=== PATIENT | female | born 1945 | race African-American/Black ===

== ENCOUNTER 2016-12-29 17:17 | Emergency (ER) | payer MEDICARE, OTHER ==
[~2016-12-29 17:17] MED LIST: ADVAIR INH; ALEVE220 MG PO; ALLERGY SHOTS; AMITIZA8 MCG PO; ASAB PO; BIST PO; COUMADIN4 MG PO; CYMBALTA60 PO; DEXILANT PO; DIL2TAB PO; DIOVAN HCT PO; DITROXL5 PO; ELESTAT0.05 % OPH; KAPIDEX60 MG PO; LORT7 PO; LYRICA50 PO; MAG OXIDE250 MG PO; MAGOX4 PO; MSCONTIN PO; NEUR300 PO; NEUR400 PO; NORCO1 TA2 PO; PERCOCET1 TA2 PO; PRINZIDE1 TAB PO; PROAIR HFA INH; RESTASIS OPH; SINGULAIR1 PO; SLOW FE; SLOW FE160 MG PO; TESSALON200 MG PO; TRAVATAN OPH; TRAZODONE150 MG PO; V5 PO; VENTOLIN HFA INH; VESICARE5 PO; VITAMIN B-121000 MC1 SL; VITAMIN D1000 UNI1 PO; VIVELLE-DOT0.05 MG TOP; XALAT OPH; XOLAIR; XOLAIR SC; ZYRTEC ALLGY10 MG PO
[2016-12-29 17:55] LABS: BASOPHILS 0.1 %; BASOPHILS ABSOLUTE 0.01 10/3/uL (0.0-0.16); EOSINOPHILS 0.9 %; HEMATOCRIT 41.5 % (36.0-48.0); HEMOGLOBIN 14.4 g/dL (12.0-16.0); IMMATURE GRANULOCYTES 0.5 %; IMMATURE GRANULOCYTES ABSOLUTE 0.05 10/3/uL (0.0-0.11); MANUAL DIFF NO %; MEAN CORPUS HGB CONC 34.7 g/dL (32.0-36.0); MEAN CORPUSCULAR HEMOGLOB 29.7 pg (26.0-34.0); MEAN CORPUSCULAR VOLUME 85.6 fL (80-100); MEAN PLATELET VOLUME 9.7 fL (9.2-13.0); MONOCYTES 4.2 %; MONOCYTES ABSOLUTE 0.47 10/3/uL (0.21-1.20); NEUTROPHILS 85.3 %; NEUTROPHILS ABSOLUTE 9.48 10/3/uL (2.02-8.40); PLATELET COUNT 293 10/3/uL (150-400); RBC DISTRIBUTION WIDTH 13.3 % (12.0-16.0); RED CELL COUNT 4.85 10/6/uL (4.0-5.6); WHITE BLOOD CELLS 11.1 10/3/uL (4.5-10.5)
[2016-12-29 18:03] LABS: PARTIAL THROMBO TIME 26.3 SEC (22.5-37.2); PROTIME (NOT ORD) 13.1 SEC (12.0-14.5)
[2016-12-29 18:11] LABS: CALCIUM, SERUM 10.7 MG/DL (8.5-10.4); CHEST PAIN PROFILE TAT 0 Hrs 20 Mins; CHLORIDE, SERUM 99 MMOL/L (96-112); CO2 (CARBON DIOXIDE) 33 MMOL/L (24-34); CREATININE 0.93 MG/DL (0.55-1.02); GFR AFRICAN AMERICAN 73 ML/MIN (>=60); GFR NON AFRICAN AMERICAN 63 ML/MIN (>=60); GLUCOSE, SERUM 117 MG/DL (60-99); POTASSIUM, SERUM 3.9 MMOL/L (3.5-5.3); SODIUM, SERUM 141 MMOL/L (135-148); TROPONIN I <0.02 NG/ML (<0.05)
[2016-12-29 18:13] LABS: BUN (BLOOD UREA NITROGEN) 17 MG/DL (6-23)
== END 2016-12-29 19:20 | disposition home or self-care (01) ==
LOC: ER 17:17
PROVIDERS: Hospitalist
DX: R07.89 Other chest pain (principal); J45.909 Unspecified asthma, uncomplicated; I10 Essential (primary) hypertension; K21.9 Gastro-esophageal reflux disease without esophagitis; J44.9 Chronic obstructive pulmonary disease, unspecified; Z79.82 Long term (current) use of aspirin; Z79.899 Other long term (current) drug therapy
CPT/HCPCS: 71010; 80048; 83690; 83735; 84484; 85025; 85610; 85730; 93005; 99285